=== PATIENT | female | born 1965 | race Hispanic/Latino ===

== ENCOUNTER → 2017-07-01 | Outpatient (CLI) | payer OTHER | LOC: MAMMO 09:44 | PROVIDERS: ATTEND Family Medicine | DX: Z12.31 Encounter for screening mammogram for malignant neoplasm of breast (principal) | CPT/HCPCS: G0202 ==

== ENCOUNTER → 2020-07-08 | Outpatient (CLI) | payer OTHER | LOC: MAMMO 13:43 | PROVIDERS: ATTEND Family Medicine | DX: Z12.31 Encounter for screening mammogram for malignant neoplasm of breast (principal) | CPT/HCPCS: 77067 ==